=== PATIENT | female | born 1945 ===

== ENCOUNTER 2020-03-21 11:15 | Inpatient (IN) | payer OTHER ==
[2020-03-21] MEDS ORDERED: FORTAMET500 MG PO (15:45)
[2020-03-21] MEDS ORDERED: TOPROL XL100 M1 PO (15:45)
[2020-03-21] MEDS ORDERED: PANTOPRAZOLE SO40 MG PO (15:46)
[2020-03-21] MEDS ORDERED: ADULT LOW DOSE81 M1 PO (15:46)
[2020-03-21] MEDS ORDERED: WARFARIN SODIUM5 MG PO (15:47)
[2020-03-21] MEDS ORDERED: FEOSOL325 MG PO (15:47)
[2020-03-21] MEDS ORDERED: NIFEDIPINE20 MG PO (15:47)
[2020-03-21] MEDS ORDERED: NASAL MIST126 ML (15:48)
[2020-03-21] MEDS ORDERED: CRESTOR40 MG PO (15:48)
[2020-04-01] MEDS ORDERED: HYOSCYAMINE0.125 M1 SL (14:40)
[2020-04-01] MEDS ORDERED: TRAMADOL HCL50 MG PO (14:41)
[2020-04-01] MEDS ORDERED: DICLOFENAC SODI75 MG PO (14:48)
== END 2020-04-01 15:55 | disposition home or self-care (01) | DRG 331 ==
LOC: O/R 03-29 10:35 → SURH 03-29 11:15 → MEDI 03-30 20:09 → SURH 04-01 15:55
PROVIDERS: ADMIT Surgery; ATTEND Surgery
PROC: 07TB4ZZ Resection of Mesenteric Lymphatic, Percutaneous Endoscopic Approach (ICD-10-PCS; 2020-03-29)
PROC: 0DTF4ZZ Resection of Right Large Intestine, Percutaneous Endoscopic Approach (ICD-10-PCS; principal; 2020-03-29 13:45)
PROC: 4A12X4Z Monitoring of Cardiac Electrical Activity, External Approach (ICD-10-PCS; 2020-03-30)
DX: C18.2 Malignant neoplasm of ascending colon (principal); R59.0 Localized enlarged lymph nodes; D50.0 Iron deficiency anemia secondary to blood loss (chronic); E11.9 Type 2 diabetes mellitus without complications; I11.9 Hypertensive heart disease without heart failure; E78.00 Pure hypercholesterolemia, unspecified; Z95.2 Presence of prosthetic heart valve

== ENCOUNTER 2020-03-28 10:55 | Day surgery (SDC) | payer OTHER ==
[~2020-03-28 10:55] MED LIST: ADULT LOW DOSE81 M1 PO; CRESTOR40 MG PO; FEOSOL325 MG PO; FORTAMET500 MG PO; NASAL MIST126 ML; NIFEDIPINE20 MG PO; PANTOPRAZOLE SO40 MG PO; TOPROL XL100 M1 PO; WARFARIN SODIUM5 MG PO
== END 2020-03-28 15:00 | disposition home or self-care (01) ==
LOC: AMB-ENDOS 10:55
PROVIDERS: ATTEND Surgery
DX: C18.2 Malignant neoplasm of ascending colon (principal)

== ENCOUNTER 2020-04-02 18:06 | Emergency (ER) | payer OTHER ==
[~2020-04-02] VITALS: Ht 167.6 cm; Wt 83.9 kg
[~2020-04-02 18:06] MED LIST changes: +DICLOFENAC SODI75 MG PO; +HYOSCYAMINE0.125 M1 SL; +TRAMADOL HCL50 MG PO
== END 2020-04-03 09:21 | disposition home or self-care (01) ==
LOC: ER 18:06
DX: K62.5 Hemorrhage of anus and rectum (principal); K91.841 Postprocedural hemorrhage of a digestive system organ or structure following other procedure; Y83.8 Other surgical procedures as the cause of abnormal reaction of the patient, or of later complication, without mention of misadventure at the time of the procedure; Y92.89 Other specified places as the place of occurrence of the external cause